=== PATIENT | male | born 1990 | race African-American/Black ===

== ENCOUNTER 2019-06-16 11:01 | Emergency (ER) | payer OTHER ==
[~2019-06-16] VITALS: Ht 170.2 cm; Wt 72.6 kg
[~2019-06-16 11:01] MED LIST: FLEXERIL PO; HYDROCODON-ACE1 EAC7 PO
[2019-06-16 13:31] VITALS: BP 129/57
[2019-06-16] MEDS ORDERED: IBUPROFEN 800800 M1 PO (13:36)
[2019-06-16] MEDS ORDERED: NORFLEX100 MG PO (13:36)
== END 2019-06-16 13:46 | disposition home or self-care (01) ==
LOC: ER 11:01
DX: S39.012A Strain of muscle, fascia and tendon of lower back, initial encounter (principal); S46.811A Strain of other muscles, fascia and tendons at shoulder and upper arm level, right arm, initial encounter; V89.2XXA Person injured in unspecified motor-vehicle accident, traffic, initial encounter; Y93.89 Activity, other specified; Y92.89 Other specified places as the place of occurrence of the external cause; Y99.8 Other external cause status